=== PATIENT | female | born 2005 | race Caucasian/White ===

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

== ENCOUNTER → 2023-08-18 | Outpatient (REF) | payer BC ==
[~2023-08-18] MED LIST changes: +MONT5CHW10; -MONT5CHW9; -PROHANCE 279.3MG/ML 15ML VIAL As Ordered ONE
[2023-08-18 16:07] LABS: BASO % 0.7 % (0.0-1.0); EOS # 0.2 10^3/uL (0.0-0.5); EOS % 3.2 % (0.0-3.0); HEMATOCRIT 38.5 % (36.0-47.0); HEMOGLOBIN 12.7 g/dl (12.0-15.5); LYMPH # 2.2 10^3/uL (1.5-5.0); LYMPH % 39.2 % (24.0-44.0); MEAN CORPUSCULAR HEMOGLOBIN 27.7 pg (27.0-33.0); MEAN CORPUSCULAR VOLUME 84.1 fl (80.0-96.0); MONO # 0.5 10^3/uL (0.0-0.8); MONO % 9.2 % (2.0-8.0); NEUTROPHILS # 2.7 10^3/uL (1.5-8.5); NEUTROPHILS % 47.5 % (36.0-66.0); PLATELET COUNT, AUTOMATED 176 10^3/uL (150-450); RED BLOOD COUNT 4.58 10^6/uL (4.00-5.40); WHITE BLOOD COUNT 5.6 10^3/uL (4.0-10.0)
[2023-08-18 16:15] LABS: ERYTHROCYTE SEDIMENTATION RATE 3 mm/hr (0-20)
[2023-08-18 16:17] LABS: IRON (FE) 31 UG/DL (50-170); TOTAL IRON BINDING CAPACITY 389 UG/DL (250-425)
[2023-08-18 16:18] LABS: ALBUMIN 3.4 G/DL (3.2-5.2); ALKALINE PHOSPHATASE 35 U/L (46-116); ALT/SGPT 26 U/L (7.0-40); AST/SGOT 17 U/L (<34); BILIRUBIN,TOTAL 0.3 MG/DL (0.3-1.2); BLOOD UREA NITROGEN 8 MG/DL (9-23); CALCIUM LEVEL 9.1 MG/DL (8.5-10.1); CARBON DIOXIDE LEVEL 26 MMOL/L (20-31); CHLORIDE LEVEL 107 MMOL/L (98-107); CREATININE FOR GFR 0.67 MG/DL (0.55-1.30); FERRITIN 4.2 NG/ML (7.3-270.7); GLUCOSE, FASTING 90 MG/DL (60-100); POTASSIUM SERUM 4.6 MMOL/L (3.5-5.1); SODIUM LEVEL 138 MMOL/L (136-145); THYROID STIMULATING HORMONE 1.164 uIU/ML (0.48-4.17); TOTAL PROTEIN 6.2 G/DL (5.7-8.2)
[2023-08-18 16:19] LABS: FREE T4 1.03 NG/DL (0.83-1.43)
== END ==
LOC: M SFHCPLAZ 13:59
PROVIDERS: ATTEND Physician Assistant
DX: M25.551 Pain in right hip (principal); M25.552 Pain in left hip; Z86.2 Personal history of diseases of the blood and blood-forming organs and certain disorders involving the immune mechanism; R55 Syncope and collapse

== ENCOUNTER → 2024-08-10 | Outpatient (CLI) | payer BC ==
[2024-08-10 11:20] LABS: HEMATOCRIT 38.8 % (36.0-47.0); HEMOGLOBIN 13.2 g/dl (12.0-15.5); MEAN CORPUSCULAR HEMOGLOBIN 30.3 pg (27.0-33.0); MEAN CORPUSCULAR VOLUME 89.2 fl (80.0-96.0); PLATELET COUNT, AUTOMATED 180 10^3/uL (150-450); RED BLOOD COUNT 4.35 10^6/uL (4.00-5.40); WHITE BLOOD COUNT 6.1 10^3/uL (4.0-10.0)
[2024-08-10 11:46] LABS: PERCENT SATURATION 32.5 % (13.2-45.0)
[2024-08-10 11:50] LABS: FERRITIN 27.3 NG/ML (7.3-270.7)
[2024-08-10 11:52] LABS: FOLATE 16.1 NG/ML (>5.4)
[2024-08-10 11:53] LABS: TOTAL 25(OH) VITAMIN D 22.7 NG/ML (20.0-100.0)
== END ==
LOC: M PLALAB 07:50
PROVIDERS: ATTEND Nurse Practitioner Family
DX: E61.1 Iron deficiency (principal)

== ENCOUNTER → 2024-08-14 | Outpatient (CLI) | payer BC | LOC: M LAB 11:51 | PROVIDERS: ATTEND Nurse Practitioner Family | DX: K52.9 Noninfective gastroenteritis and colitis, unspecified (principal) ==

== ENCOUNTER → 2025-03-28 | Outpatient (CLI) | payer BC ==
[2025-03-28 14:02] LABS: PLATELET COUNT, AUTOMATED 159 10^3/uL (150-450)
[2025-03-28 14:33] LABS: FREE T4 1.09 NG/DL (0.89-1.76)
[2025-03-28 14:34] LABS: ALT/SGPT 46 U/L (7.0-40); AST/SGOT 28 U/L (<34); CALCIUM LEVEL 9.3 MG/DL (8.5-10.1); CARBON DIOXIDE LEVEL 27 MMOL/L (20-31); CHLORIDE LEVEL 105 MMOL/L (98-107); CREATININE FOR GFR 0.84 MG/DL (0.55-1.30); GLOMERULAR FILTRATION RATE > 90.0 (>60); IRON (FE) 122 UG/DL (50-170); MAGNESIUM LEVEL 2.0 MG/DL (1.8-2.4); PERCENT SATURATION 32.8 % (13.2-45.0); POTASSIUM SERUM 4.1 MMOL/L (3.5-5.1); SODIUM LEVEL 142 MMOL/L (136-145)
[2025-03-28 14:35] LABS: VITAMIN B12 LEVEL 372 PG/ML (211-911)
== END ==
LOC: M PLALAB 11:07
PROVIDERS: ATTEND Nurse Practitioner Family
DX: E61.1 Iron deficiency (principal); R00.2 Palpitations

== ENCOUNTER → 2025-05-18 | Outpatient (REF) | payer BC | LOC: M SFHCPLAZ 13:02 | PROVIDERS: ATTEND Nurse Practitioner Family | DX: K52.9 Noninfective gastroenteritis and colitis, unspecified (principal) ==

== ENCOUNTER → 2025-08-09 | Outpatient (CLI) | payer BC ==
[2025-08-11 08:07] LABS: F023-IGE CRAB <0.10 kU/L (Class 0); F080-IGE LOBSTER <0.10 kU/L (Class 0); F207-IGE CLAM 5.38 kU/L (Class IV); F290-IGE OYSTER <0.10 kU/L (Class 0); F338-IGE SCALLOP 0.88 kU/L (Class II)
[2025-08-13 15:33] LABS: F024-IGE SHRIMP < 0.10 kU/L (<0.10)
== END ==
LOC: M PLALAB 10:29
PROVIDERS: ATTEND Allergy & Immunology Allergy
DX: T78.02XA Anaphylactic reaction due to shellfish (crustaceans), initial encounter (principal)